=== PATIENT | female | born 1960 | race Caucasian/White ===

== ENCOUNTER → 2017-02-04 | Outpatient (CLI) | payer BC | END | disposition home or self-care (01) | LOC: GMAHI 14:40 | PROVIDERS: ATTEND Nurse Practitioner Family | DX: D51.9 Vitamin B12 deficiency anemia, unspecified (principal) ==

== ENCOUNTER → 2017-10-29 | Outpatient (CLI) | payer BC | LOC: GMAH 14:29 | PROVIDERS: ATTEND Family Medicine | DX: E03.9 Hypothyroidism, unspecified (principal); D51.9 Vitamin B12 deficiency anemia, unspecified ==

== ENCOUNTER → 2018-12-30 | Outpatient (CLI) | payer BC | LOC: GMA MATASK 10:36 | PROVIDERS: ATTEND Family Medicine | DX: E03.9 Hypothyroidism, unspecified (principal) ==

== ENCOUNTER → 2019-01-22 | Outpatient (CLI) | payer BC | LOC: LAB.O 08:32 | PROVIDERS: ATTEND Clinical Nurse Specialist Women's Health | DX: Z01.419 Encounter for gynecological examination (general) (routine) without abnormal findings (principal); N95.9 Unspecified menopausal and perimenopausal disorder; R53.83 Other fatigue ==

== ENCOUNTER → 2019-03-22 | Outpatient (CLI) | payer BC | LOC: GMA MATASK 14:25 | PROVIDERS: ATTEND Family Medicine | DX: N95.9 Unspecified menopausal and perimenopausal disorder (principal) ==

== ENCOUNTER → 2019-07-05 | Outpatient (CLI) | payer BC | LOC: GMA MATASK 11:21 | PROVIDERS: ATTEND Family Medicine | DX: E03.9 Hypothyroidism, unspecified (principal); I10 Essential (primary) hypertension; E78.2 Mixed hyperlipidemia ==

== ENCOUNTER → 2019-07-09 | Outpatient (CLI) | payer BC | LOC: GMA MATASK 11:30 | PROVIDERS: ATTEND Family Medicine | DX: N95.9 Unspecified menopausal and perimenopausal disorder (principal); R53.83 Other fatigue; D51.9 Vitamin B12 deficiency anemia, unspecified; E55.9 Vitamin D deficiency, unspecified ==

== ENCOUNTER → 2019-07-30 | Outpatient (CLI) | payer BC ==
--- NOTE | 2019-07-31 16:30 | MRI ---
EXAM DESCRIPTION: Cervical Spine: MRI. CLINICAL HISTORY: 58 years Female RADICULOPATHY COMPARISON: Prior scan cervical spine October 2013. TECHNIQUE: Multiplanar, high-field MRI, multiple sequences, non-contrast Cervical spine. FINDINGS: C3-C4: Disc desiccation and minimal disc space loss more posterior and to the right of midline with mild to moderate endplate reactive changes. Posterior disc osteophyte bulge abutting the cord. Grade 1 anterolisthesis 2 mm. Bilateral uncinate spurs. Bilateral mild to moderate neural foraminal narrowing and mild to moderate canal narrowing. Moderate degenerative hypertrophy of the right facet joint and posterior ligament. This has progressed since the prior study. C4-C5: Disc desiccation and [id number] disc space loss. Anterior moderate endplate reactive changes and disc bulge with endplate ridging. Posterior broad-based disc osteophyte complex bulge abutting the cord. Bilateral posterior ligament thickening with no hypertrophy of the facet joints. Borderline mild central canal stenosis. Moderate left neural foraminal narrowing and mild right neural foraminal stenosis. This has progressed since the prior study. C5-C6: Mild to moderate disc space loss with disc desiccation anterior endplate ridging and disc bulging. Posterior broad-based disc osteophyte bulge abutting the cord and the nerve roots. Minimal hypertrophy of the posterior ligaments. Facet joints are unremarkable. Moderate to severe canal narrowing. Moderate right neural foraminal narrowing and mild left neural foraminal stenosis. This has progressed since the prior study. C6-C7: Mild to moderate disc space loss and disc desiccation with anterior endplate ridging and disc bulge. Mild endplate reaction on the left. Posterior disc osteophyte bulge almost abutting the cord. Negative ligaments with minimal degenerative hypertrophy of the left facet joint. Disc osteophyte complex encroaching on the left foramen with borderline left neural foraminal stenosis. Mild to moderate right neural foraminal narrowing. Mild to moderate canal narrowing. C7-T1: Disc desiccation with trace anterolisthesis. Disc space maintained. Minimal degenerative hypertrophy of the right facet joint with ligaments negative. Canal and neural foramina are patent. No interval change. T1-T2: Disc desiccation with right-sided uncinate spur and minimal narrowing of the inner aspect of the right neural foramen. This has progressed since the prior study. Ligaments and facet joints are negative. Canal and left neural foramen are patent. Normal signal in the C2-C3 disc with no bulging. Disc spaces preserved. Canal and neural foramina are patent. Facet joints unremarkable. Spinal alignment C3-C5 kyphosis. No cord compression or cord edema. Atlantoaxial joint mild to moderate arthrosis and hypertrophy but no cord impingement. Base of the cerebellar tonsils is just above the foramen magnum. Paravertebral soft tissues unremarkable. Vertebral bodies are not compressed at any level. Otherwise normal marrow signal in the remaining vertebral bodies and the posterior elements. IMPRESSION: 1. Multiple levels of disc endplate spondylosis, desiccated and bulging discs, facet joint and posterior ligament degenerative hypertrophy. 2. Mild to moderate canal and neural foraminal narrowing at C3-C4. Degenerative hypertrophy of the right facet joint and ligament which has progressed since the prior study. 3. Multifactorial borderline mild central canal stenosis C4-C5 and mild right neural foraminal stenosis with possible compromise right C5 nerve. This is progressed since the prior study. 4. Multifactorial moderate to severe canal narrowing at C5-C6 and mild left neural foraminal stenosis with possible compromise left C6 nerve. This is progressed since the prior study. 5. Borderline left neural foraminal stenosis at C6-C7 and mild to moderate canal narrowing is stable since the prior study. Electronically signed by: Fermin Lees MD 07/31/2019 4:28 PM CDT
== END ==
LOC: MRI 08:07
PROVIDERS: ATTEND Orthopaedic Surgery
DX: M54.12 Radiculopathy, cervical region (principal); M47.892 Other spondylosis, cervical region; M48.02 Spinal stenosis, cervical region; M50.30 Other cervical disc degeneration, unspecified cervical region; M50.90 Cervical disc disorder, unspecified, unspecified cervical region; M46.92 Unspecified inflammatory spondylopathy, cervical region; M24.28 Disorder of ligament, vertebrae

== ENCOUNTER → 2020-02-01 | Outpatient (CLI) | payer OTHER | LOC: GMA MATASK 15:15 | PROVIDERS: ATTEND Family Medicine | DX: I10 Essential (primary) hypertension (principal) ==

== ENCOUNTER → 2020-02-08 | Outpatient (CLI) | payer OTHER | LOC: GMA MATASK 10:10 | PROVIDERS: ATTEND Family Medicine | DX: N95.9 Unspecified menopausal and perimenopausal disorder (principal); R53.83 Other fatigue; E55.9 Vitamin D deficiency, unspecified; D51.9 Vitamin B12 deficiency anemia, unspecified ==